=== PATIENT | male | born 1990 | race Caucasian/White ===

== ENCOUNTER 2017-08-13 15:27 | Emergency (ER) | payer OTHER ==
[~2017-08-13] VITALS: Ht 177.8 cm; Wt 95.3 kg
[~2017-08-13 15:27] MED LIST: BACTRIM DS TAB1 EACH PO; IBUPROFEN 800800 M1 PO; NORCO 5-325 TA1 EACH PO
[2017-08-13 16:41] LABS: ABSOLUTE BASOPHILS 0.1 thou/uL (0.0-0.2); ABSOLUTE EOSINOPHILS 0.7 thou/uL (0.0-0.7); ABSOLUTE LYMPHOCYTES 2.7 thou/uL (0.8-5.3); ABSOLUTE MONOCYTES 0.5 thou/uL (0.0-1.2); ABSOLUTE NEUTROPHILS 7.3 thou/uL (1.6-8.1); HEMATOCRIT 43.5 % (42.0-52.0); HEMOGLOBIN 14.8 gm/dL (14.0-18.0); LYMPHOCYTES 23.9 %; MCH 29.4 pg (26.0-34.0); MCHC 34.1 g/dL (28.0-37.0); MCV 86.4 fL (80.0-100.0); MONOCYTES 4.5 %; MPV 8.6 fl. (7.2-11.1); NUCLEATED RBCS 0 /100WBC; PLATELET COUNT* 275 thou/uL (150-400); POLYS 64.6 %; RBC 5.03 mil/uL (4.50-6.00); WBC 11.4 thou/uL (4.0-11.0)
[2017-08-13 17:08] LABS: ALKALINE PHOSPHATASE 106 U/L (46-116); ANION GAP 6 mmol/L (7-16); BUN 18 mg/dL (7-18); CALCIUM 9.1 mg/dL (8.5-10.1); CHLORIDE 105 mmol/L (98-107); CO2 29 mmol/L (21-32); CREATININE 1.2 mg/dL (0.6-1.3); GLUCOSE 89 mg/dL (70-99); SGOT 19 U/L (15-37); SGPT 30 U/L (30-65); SODIUM 140 mmol/L (136-145); TOTAL BILIRUBIN 0.2 mg/dL (<0.1-1.0); TOTAL PROTEIN 7.4 g/dL (6.4-8.2); TROPONIN-I LEVEL <0.06 ng/mL (<0.06)
[2017-08-13] MEDS ORDERED: ROBAXIN500 MG PO (17:20)
[2017-08-13] MEDS ORDERED: IBUPROFEN 800800 M1 PO (17:20)
[2017-08-13 17:29] VITALS: BP 136/78
--- NOTE | 2017-08-14 10:13 | EKG ---
[place] [address] ELECTROCARDIOGRAM REPORT Name: LEXIE ALEXANDER [id number] Admission: 08/13/17 Attend Phys: Discharge: 08/13/17 Date of : [birth year] Report #: [id number] THIS REPORT FOR: //name// [facility] ED Test Date: 2017-08-13 Test Time: 15:31:57 Pat Name: LEXIE ALEXANDER Department: Room: Gender: M [employer]: KARLOS : 1990 Requested By: Mohamud Foy Order Number: [id number] Bettie MD: Alphonso Jacome Measurements Intervals [place] Rate: 82 P: 50 NM: 140 QRS: 69 QRSD: 79 T: 34 QT: 338 QTc: 395 Interpretive Statements Sinus rhythm No previous ECG available for comparison Electronically Signed On 08-14-2017 10:13:41 CDT by Alphonso Jacome [email or web address] <ELECTRONICALLY SIGNED> By: Alphonso Jacome MD, [facility] 08/14/17 1013 1531 1531 Alphonso Jacome MD, FACC /EPI
== END 2017-08-13 17:30 | disposition home or self-care (01) ==
LOC: M.ERS 15:27
PROVIDERS: Nurse Practitioner Family
DX: M94.0 Chondrocostal junction syndrome [Tietze] (principal); F17.210 Nicotine dependence, cigarettes, uncomplicated

== ENCOUNTER 2019-05-08 00:39 | Emergency (ER) | payer BC ==
[~2019-05-08] VITALS: Ht 177.8 cm; Wt 104.3 kg
[~2019-05-08 00:39] MED LIST changes: +ROBAXIN500 MG PO
[2019-05-08] MEDS ORDERED: TYLENOL WITH CO1 TA1 PO (01:47)
[2019-05-08 01:55] VITALS: BP 132/80
== END 2019-05-08 01:55 | disposition home or self-care (01) ==
LOC: M.ERS 00:39
DX: M25.461 Effusion, right knee (principal)

== ENCOUNTER 2020-03-26 21:20 | Emergency (ER) | payer OTHER ==
[~2020-03-26] VITALS: Ht 177.8 cm; Wt 104.3 kg
[~2020-03-26 21:20] MED LIST changes: +TYLENOL WITH CO1 TA1 PO
[2020-03-26] MEDS ORDERED: PERIDEX 0.12%473 M1 SWISH&SPIT (22:15)
[2020-03-26] MEDS ORDERED: ACETAMINOPHEN-1 EAC2 PO (22:15)
[2020-03-26 22:36] VITALS: BP 148/86
== END 2020-03-26 22:36 | disposition home or self-care (01) ==
LOC: M.ERS 21:20
DX: K08.89 Other specified disorders of teeth and supporting structures (principal); K02.9 Dental caries, unspecified